=== PATIENT | female | born 1995 | race Asian ===

== ENCOUNTER 2020-08-01 09:44 | Outpatient (NON) | payer BC, SELFPAY ==
[2020-08-01 22:05] LABS: SARS-CoV-2 RNA PCR Negative
== END 2020-08-01 09:45 ==
PROVIDERS: Visit Provider Family Medicine
DX: Z20.822 Contact with and (suspected) exposure to COVID-19 (principal)
CPT/HCPCS: C9803; U0003; U0005

== ENCOUNTER 2021-06-16 16:56 | Emergency (ER) | payer OTHER, SELFPAY ==
[2021-06-16 17:14] VITALS: BP 136/93; PULSE 119; RESP 16; TEMP 37.5
--- NOTE | 2021-06-16 17:33 | ED.URI ---
HPI - URI/Sore Throat General Chief Complaint: Upper Respiratory Infection Stated Complaint: cough/congestion Time Seen by Provider: 06/16/21 17:33 Source: patient Mode of arrival: ambulatory Limitations: no limitations History of Present Illness HPI Narrative: Remedios Rosales is a 25 yo female with no PMH who comes to express care with upperrespiratory symptoms of sinus congestion pressure and cough that is worsening over the past 2 weeks, she has taken [id number] DayQuil and NyQuil and has not improved and is gotten worse at night Related Data Home Medications Medication Instructions Recorded Confirmed No Home Medications 06/16/21 06/16/21 Allergies Allergy/AdvReac Type Severity Reaction Status Date / Time No Known Allergies Allergy Verified 06/16/21 17:07 Review of Systems Review of Systems: CONSTITUTIONAL: Denies fever, chills, sweats. EYES: Denies visual changes, redness, discharge. ENT: Has rhinorrhea, has congestion, sore throat, otalgia. CARDIOVASCULAR: Denies chest pain, palpitations, edema. RESPIRATORY: Denies dyspnea, wheezing, has cough GASTROINTESTINAL: Denies abdominal pain, nausea, vomiting, diarrhea. GENITOURINARY: Denies dysuria, hematuria, abnormal discharge SKIN: Denies rash or itching. NEUROLOGIC: Denies numbness, or focal weakness. PSYCHIATRIC: Denies anxiety or depression. PMFSH Past Medical History Medical History No acute medical problems Family History Family History Mother Hypertension Family history of arthritis Family history of diabetes mellitus in first degree relative Father Family history of diabetes mellitus in first degree relative Social History Social History Smoking status: Never smoker Comments At time of signature, I agree with nursing past medical, surgical, social and family history. There is no relevant family history pertinent to the presenting complaint. Blood pressure is elevated at this visit should follow-up with primary care physician Exam Narrative: GENERAL: This is a well-nourished, well-developed patient, in mild distress. Rates pain as less than 5 out of 10 HEAD: normocephalic, atraumatic. EYES:. Sclera clear/white. Vision is grossly intact. EARS: External ears normal, auditory canals erythema and without drainage, TMs normal without perforation. Hearing grossly intact. NOSE: External nose normal without nasal discharge, nares with redness, has rhinorrhea. THROAT: Mucous membranes moist, posterior pharynx mild erythema NECK: Neck supple, non-tender CARDIOVASCULAR: Tachycardic rate and rhythm without murmurs, gallops, or rubs. RESPIRATORY: Clear to auscultation. Breath sounds equal bilaterally. No wheezes, rales, or rhonchi. GASTROINTESTINAL: Abdomen soft, SKIN: warm, intact with no suspicious lesions or rash, good texture and turgor. NEURO: awake, alert, and oriented to person, place and time. There were no obvious focal neurologic abnormalities. Steady gait EXTREMITIES: Normal range of motion. BACK: Nontender without deformity Course Course Emergency Course: [facility] complaints of sinus congestion and increasing cough for the last 2 weeks she states that it is hard to sleep at night because keeps her awake she has been taking [id number] medication like NyQuil that is not been working Started on prednisone and Tessalon Perles; patient should take Zyrtec in the morning Vital Signs Vital signs: Vital Signs Temperature 99.5 F 06/16/21 17:14 Pulse Rate 119 H 06/16/21 17:14 Respiratory Rate 16 06/16/21 17:14 Blood Pressure 136/93 H 06/16/21 17:14 Temperature 99.5 F 06/16/21 17:14 Pulse Rate 119 H 06/16/21 17:14 Respiratory Rate 16 06/16/21 17:14 Blood Pressure 136/93 H 06/16/21 17:14 MDM - URI/Sore Throat Dif
== END 2021-06-16 17:52 | disposition home or self-care (01) ==
PROVIDERS: Emergency Provider Nurse Practitioner
DX: J40 Bronchitis, not specified as acute or chronic (principal)
CPT/HCPCS: 99213; G0463

== ENCOUNTER 2022-01-24 17:15 | Emergency (ER) | payer OTHER, SELFPAY ==
--- NOTE | 2022-01-24 17:26 | ED.URI ---
HPI - URI/Sore Throat General Chief Complaint: Upper Respiratory Infection Stated Complaint: stuffy nose and body aches Time Seen by Provider: 01/24/22 17:25 Source: patient Mode of arrival: ambulatory Limitations: no limitations History of Present Illness HPI Narrative: Remedios is a 26-year-old female patient presenting to the clinic today with complaints of stuffy nose and body aches that began today. She reports her father is tested positive for COVID. She denies any other symptoms. MD elicited complaint: nasal congestion Related Data Home Medications Medication Instructions Recorded Confirmed ascorbic acid (vitamin C) 1,000 mg 1 g PO DAILY 07/13/21 07/13/21 tablet cholecalciferol (vitamin D3) 125 125 mcg PO DAILY 07/13/21 07/13/21 mcg (5,000 unit) capsule Allergies Allergy/AdvReac Type Severity Reaction Status Date / Time No Known Allergies Allergy Verified 07/13/21 13:24 Review of Systems Review of Systems: Pertinent positives per HPI. Patient denies any fever, chills, rash, headache, visual changes, dizziness, cough, shortness of breath, chest pain, palpitations, nausea, vomiting, diarrhea, constipation, abdominal pain, or any urinary issues. [facility] Past Medical History Medical History History of COVID-19 06/2020 Thalassemia trait, alpha Family History Family History Mother Hypertension Family history of arthritis Family history of diabetes mellitus in first degree relative Father Family history of diabetes mellitus in first degree relative Social History Social History Smoking status: Never smoker Alcohol intake: current Substance use: never Substance use type: does not use Gender identity (if verbalized by the patient): Female Comments At the time of my signature, I reviewed and agree with the nursing past medical, surgical, social, and family history. There is no relevant family history pertinent to the patient complaint. Exam Narrative: General: Well-developed, well nourished, in no apparent distress Head: Normocephalic, atraumatic Eyes: Pupils equally round and reactive to light bilaterally, EOM intact, sclera and conjunctive clear, no discharge, lids normal Ears: TMs intact and clear, ear canals clear, no drainage, grossly hearing normal. Nose: Nares patent, no discharge, no inflammation, no sinus tenderness. Mouth: Oral pharynx without lesions or masses, good dentition, MMM. Neck: Supple, trachea midline, no enlargement of anterior or posterior cervical nodes, no thyroid masses or goiter palpable. Cardio: Regular rate and rhythm, s1 and s2 normal, no murmur appreciated. Resp: Clear to auscultation bilaterally, no rhonchi, rales, wheezing or rubs Course Course Emergency Course: Portions of this record may have been created with voice recognition software. Level of Care: Express Care Visit Vital Signs Vital signs: Vital signs reviewed MDM - URI/Sore Throat MDM Narrative Medical decision making narrative: At the time of visit patient is resting comfortably on the exam table. Explained to patient that since her symptoms just began today is too early to test her for COVID and she should retest for COVID in 2 days if symptoms persist. She should quarantine for COVID. Work note was given for this. Supportive measures were discussed and patient voiced understanding of discharge instructions. Differential Diagnosis Differential diagnosis: Likely upper respiratory infection, sinusitis, viral infection, influenza, pharyngitis and other (COVID) Discharge Plan Discharge Clinical Impression: Viral syndrome, Exposure to COVID-19 virus Patient Disposition: Home, Self-Care Condition: Stable Instructions: Antibiotic Form, Viral Syndrome (ED) Additional Instructions: If
[2022-01-24 17:34] VITALS: BP 129/82; PULSE 77; RESP 16; TEMP 36.7; O2SAT 99
== END 2022-01-24 18:01 | disposition home or self-care (01) ==
PROVIDERS: Emergency Provider Nurse Practitioner Family; PCP Family Medicine
DX: B34.9 Viral infection, unspecified (principal); Z20.822 Contact with and (suspected) exposure to COVID-19; Z86.16 Personal history of COVID-19
CPT/HCPCS: 99211; G0463

== ENCOUNTER 2024-04-01 08:22 | Outpatient (CLI) | payer BC, SELFPAY ==
--- NOTE | ~2024-04-01 | US_ITS ---
Limited Abdominal Sonogram: Real-time sonographic imaging of the right upper quadrant was performed. Clinical History: Abnormal serum enzyme levels Findings: The liver appears mildly heterogeneous, with no evidence of mass lesion or bile duct dilat ation. Main portal vein demonstrates normal direction of flow. The gallbladder is well distended, and appears normal with no evidence of gallstone or wall thickening. The common bile duct measures 5 mm. The visualized pancreas, aorta, and IVC are unremarkable. Impression: Mildly heterogeneous hepatic echotexture. Correlate for fatty infiltration or other chronic liver dis ease. Reviewed, dictated and finalized at location M. Impression: Mildly heterogeneous hepatic echotexture. Correlate for fatty infiltration or o ther chronic liver disease.
== END 2024-04-01 08:23 | disposition home or self-care (01) ==
PROVIDERS: PCP Family Medicine; Visit Provider Family Medicine
DX: R74.8 Abnormal levels of other serum enzymes (principal); R93.2 Abnormal findings on diagnostic imaging of liver and biliary tract
CPT/HCPCS: 76705